=== PATIENT | male | born 1970 | race Caucasian/White ===

== ENCOUNTER → 2020-06-25 16:47 | Outpatient (CLI) | payer OTHER, SELFPAY ==
--- NOTE | ~2020-06-25 | MR_ITS ---
EXAMINATION: MR femur RT wo con DATE: 06/25/2020 18:24 INDICATION: Right upper leg pain. TECHNIQUE: Magnetic resonance imaging (MRI) of the right femur/thigh was performed without intravenou s contrast. A marker was placed over the region of concern. Sequences included axial T1-weighted FSE , axial T2-weighted FS FSE, coronal T1-weighted FSE, coronal fluid sensitive FSE STIR, sagittal T1-we ighted FSE and sagittal fluid sensitive FSE STIR. The contralateral left thigh is included on the cor onal images. COMPARISON: None. FINDINGS: Normal and symmetric muscle bulk and signal throughout both thighs. The marker is positioned posterio r to the mid thigh. No underlying masses or fluid collections identified. There is normal bone marrow signal throughout with no fracture, reactive edema or pathologic marrow replacing process. Femoral t unnel is seen in the location consistent with prior anterior cruciate ligament reconstruction. No hip or knee joint effusions. Neuromuscular structures are unremarkable. No pathologically enlarged lymph adenopathy at the right inguinal region. IMPRESSION: 1. Unremarkable MRI of the right thigh. No etiology identified for reported pain at the posterior thi gh. Reviewed, dictated and finalized at location B. IMPRESSION: 1. Unremarkable MRI of the right thigh. No etiology identified for reported mildred n at the posterior thigh.
== END ==
PROVIDERS: PCP Family Medicine; Visit Provider Family Medicine
DX: M79.604 Pain in right leg (principal)
CPT/HCPCS: 73718

== ENCOUNTER 2022-01-04 14:47 | Outpatient (CLI) | payer OTHER, SELFPAY ==
--- NOTE | ~2022-01-04 | MR_ITS ---
EXAMINATION: MR shoulder RT wo con DATE: 01/04/2022 15:56 INDICATION: Right shoulder pain. TECHNIQUE: Magnetic resonance imaging (MRI) of the right shoulder was performed without intravenous c ontrast. Sequences included axial PD-weighted FS FSE, coronal oblique PD-weighted FS FSE and T2-weigh robert FS FSE, and sagittal oblique T2-weighted FS FSE and T1-weighted FSE. COMPARISON: None. FINDINGS: Coracoacromial arch: The acromion undersurface is flat in morphology (type I). There is severe acromioclavicular joint ost eoarthritis including inferiorly directed osteophytes. There is moderate subacromial/subdeltoid bursi tis. Rotator cuff: There is severe supraspinatus tendinopathy. There is a bursal-sided, partial-thickness tear of anteri or supraspinatus tendon measuring 3 mm anterior to posterior by 6 mm anterior to posterior by 60% ten don thickness. There is moderate infraspinatus tendinopathy. Teres minor tendon is normal. There is m oderate subscapularis tendinopathy. There is no asymmetric fatty atrophy of the rotator cuff muscle massiel powers. Biceps tendon and glenoid labrum: Biceps tendon is in bicipital groove. There is mild intra-articular biceps tendinopathy. There is a t ear of posterior superior labrum from 10:00 to 12:00 (SLAP tear). Fluid: There is no glenohumeral joint effusion. Bones/cartilage: There is cartilage surface irregularity of glenoid and humeral head. IMPRESSION: 1. Bursal-sided, partial-thickness tear of supraspinatus tendon. 2. Mild glenohumeral joint chondrosis. SLAP tear. 3. Severe acromioclavicular joint osteoarthritis. 4. Moderate subacromial/subdeltoid bursitis. 5. Mild intra-articular biceps tendinopathy. Reviewed, dictated and finalized at location B.
== END 2022-01-04 14:48 ==
PROVIDERS: PCP Family Medicine; Visit Provider Nurse Practitioner Family
DX: M19.011 Primary osteoarthritis, right shoulder (principal); M75.51 Bursitis of right shoulder; S43.431A Superior glenoid labrum lesion of right shoulder, initial encounter; X58.XXXA Exposure to other specified factors, initial encounter
CPT/HCPCS: 73221

== ENCOUNTER → 2022-08-08 11:42 | Outpatient (CLI) | payer OTHER, SELFPAY ==
--- NOTE | ~2022-08-08 | CT_ITS ---
EXAMINATION: CT diagnostic chest wo con DATE: 08/08/2022 12:04 INDICATION: Upper lobe pulmonary nodule. TECHNIQUE: Computed tomography (CT) of the abdomen and pelvis was performed without intravenous contr ast. The dose-length product was 445.94 mGy-cm. Automated exposure control and iterative reconstructi on technique were employed. COMPARISON: None. FINDINGS: No thoracic lymphadenopathy. Heart size is normal. No significant pleural or pericardial ef fusion. The upper abdomen is unremarkable. There is a 1.5 x 1.3 cm nodule in the left upper lobe. The re is emphysema. No endobronchial lesions. There is a 6 mm nodule in the right lower lobe, superior s egment. There is a 2 mm left upper lobe nodule, image 51. IMPRESSION: 1. Bilateral pulmonary nodules, largest measuring 1.5 x 1.3 cm in the left upper lobe. Recommend foll ow-up PET/CT scan, low dose CT chest in 3 months or percutaneous biopsy. Reviewed, dictated and finalized at location A. CARE BILLER IMPRESSION: 1. Bilateral pulmonary nodules, largest measuring 1.5 x 1.3 cm in the left uppe r lobe. Recommend follow-up PET/CT scan, low dose CT chest in 3 months or percu taneous biopsy.
== END ==
PROVIDERS: PCP Nurse Practitioner Family; Visit Provider Nurse Practitioner Family
DX: R93.89 Abnormal findings on diagnostic imaging of other specified body structures (principal); R91.1 Solitary pulmonary nodule; M25.512 Pain in left shoulder
CPT/HCPCS: 71250

== ENCOUNTER → 2022-08-29 16:01 | Outpatient (CLI) | payer OTHER, SELFPAY ==
--- NOTE | ~2022-08-29 | MR_ITS ---
EXAMINATION: MR shoulder LT wo con DATE: 08/29/2022 16:55 INDICATION: Left shoulder pain TECHNIQUE: Magnetic resonance imaging (MRI) of the left shoulder was performed without intravenous co ntrast. Sequences included axial PD-weighted FS FSE, coronal oblique PD-weighted FS FSE, coronal obli que T2-weighted FS FSE, sagittal PD-weighted FS FSE, and sagittal T1-weighted SE. COMPARISON: None. FINDINGS: Coracoacromial arch: The acromion undersurface is minimally curved in morphology (type I-II). The coracoacromial ligament is normal. Moderate acromioclavicular osteoarthritis with mild cystic changes at the lateral head of the clavicle and small inferiorly directed osteophytes. Rotator cuff: Mild supraspinatus and infraspinatus tendinopathy without discrete tear. The teres minor tendon is no rmal. Tendinopathy cephalad aspect of the subscapularis tendon also without discrete tear. Normal rot ator cuff muscle bulk and signal. Biceps tendon, glenoid labrum and glenohumeral cartilage: Long head of the biceps tendon is normal. Of amorphous increased signal at the superior glenoid labru m consistent with labral degeneration without a discrete well-defined linear labral tear. Mild partia l-thickness cartilage loss with smooth chondral surface along the cephalad third of the glenoid as we ll as along the inferomedial aspect of the humeral head. Fluid: Small glenohumeral joint effusion with proportional small amount of fluid extending along the long he ad biceps tendon sheath. No loose osteochondral bodies. Moderate increased fluid signal in the subacr omial/subdeltoid bursa consistent with mild bursitis. Bones: Normal marrow signal with no edema, fracture or abnormal marrow replacing process. IMPRESSION: 1. Mild glenohumeral osteoarthritis with mild degeneration at the superior glenoid labrum and small g lenohumeral joint effusion. 2. Mild subscapularis, supraspinatus and infraspinatus tendinopathy without tear. 3. Moderate acromioclavicular osteoarthritis. 4. Mild subacromial/subdeltoid bursitis. Reviewed, dictated and finalized at location A. S [employer] IMPRESSION: 1. Mild glenohumeral osteoarthritis with mild degeneration at the superior marquita oid labrum and small glenohumeral joint effusion. 2. Mild subscapularis, supraspinatus and infraspinatus tendinopathy without tea r. 3. Moderate acromioclavicular osteoarthritis. 4. Mild subacromial/subdeltoid bursitis.
== END ==
PROVIDERS: PCP Nurse Practitioner Family; Visit Provider Nurse Practitioner Family
DX: R93.89 Abnormal findings on diagnostic imaging of other specified body structures (principal); R91.1 Solitary pulmonary nodule; M19.012 Primary osteoarthritis, left shoulder; M75.52 Bursitis of left shoulder
CPT/HCPCS: 73221

== ENCOUNTER 2022-09-05 13:17 | Outpatient (CLI) | payer OTHER, SELFPAY ==
--- NOTE | ~2022-09-05 | PE_ITS ---
EXAMINATION: PET skull to mid thigh DATE: 09/05/2022 15:18 INDICATION: Multiple pulmonary nodules TECHNIQUE: Blood glucose level was 114 mg/dL. 11.436 mCi of 18-fluorodeoxyglucose (18-FDG) was admini stered i.v. Low dose computed tomography (CT) images were acquired from the base of the brain to the proximal thighs for attenuation correction and anatomic localization. Positron emission tomography (P ET) images were acquired in the same distribution beginning 71 minutes after injection. Images includ ing fused PET/CT images were reconstructed in axial, coronal, and sagittal planes. Automated exposure control technique was employed. The dose-length product was 849.51mGy-cm. COMPARISON: Chest CT dated 08/08/2022 FINDINGS: Head/neck: There is symmetric increased activity in the oral cavity, palatine tonsils, parotid glands, submandi bular glands and ocular muscles without CT correlate, likely physiologic. No pathologically enlarged cervical lymphadenopathy or suspicious foci of increased FDG uptake in the visualized head or neck. Chest: 1.3 cm left apical nodule without evident FDG uptake. 6 mm nodules in the superior segment of the rig ht lower lobe and 2 mm nodule at the junction of the lingula and left upper lobe, both also without F DG uptake. No pneumonia, pulmonary edema or pleural effusion. Heart size is normal. No pericardial ef fusion. Thoracic aorta is normal in caliber. No pathologically enlarged or FDG avid thoracic lymphade nopathy. Abdomen/pelvis/proximal thighs: Physiologic renal accumulation and excretion of FDG activity in the kidneys, bladder and along portio ns of ureters. Normal degree and heterogenous pattern of increased uptake throughout the liver withou t radiologic correlate or dominant FDG avid lesion. The gallbladder, pancreas, spleen and bilateral a drenal glands are normal. Normal appendix. Mild to moderate uptake scattered throughout the bowels wi thout radiologic correlate, also likely physiologic. No other abnormal foci of increased FDG uptake o r pathologically enlarged lymphadenopathy in the abdomen, pelvis or proximal thighs. Musculoskeletal: Mild synovial uptake about the bilateral glenohumeral joints. Mild uptake at the bilateral ischial tu berosities and left greater trochanter likely related to mild ischial and trochanteric bursitis respe ctively. No suspicious lytic, blastic or FDG avid bone lesions. IMPRESSION: 1. No FDG uptake is fissure with a few pulmonary nodules, the largest a 1.3 cm left upper lobe nodule . While reassuring and favoring old granulomatous disease at this does not absolutely exclude maligna ncy. Recommend 6 month follow-up low-dose noncontrast chest CT. 2. No FDG avid lesions suspicious for malignancy Reviewed, dictated and finalized at location L. ER JOINER IMPRESSION: 1. No FDG uptake is fissure with a few pulmonary nodules, the largest a 1.3 cm left upper lobe nodule. While reassuring and favoring old granulomatous disease at this does not absolutely exclude malignancy. Recommend 6 month follow-up lo w-dose noncontrast chest CT. 2. No FDG avid lesions suspicious for malignancy
[2022-09-05 13:44] LABS: Glucose Point of Care 114 mg/dl (65-105)
== END 2022-09-05 13:18 | disposition home or self-care (01) ==
PROVIDERS: PCP Nurse Practitioner Family; Visit Provider Nurse Practitioner Family
DX: R93.89 Abnormal findings on diagnostic imaging of other specified body structures (principal); R91.8 Other nonspecific abnormal finding of lung field; R91.1 Solitary pulmonary nodule
CPT/HCPCS: 78815; A9552

== ENCOUNTER 2023-02-26 15:06 | Outpatient (CLI) | payer OTHER, SELFPAY ==
--- NOTE | ~2023-02-26 | CT_ITS ---
EXAMINATION:CT diagnostic chest wo con DATE: 02/26/2023 15:21 INDICATION: Left upper lobe pulmonary nodule. Abnormal findings on imaging. TECHNIQUE: Computed tomography (CT) of the chest was performed without intravenous contrast. Automate d exposure control and iterative reconstruction technique were employed. The dose-length product (DLP ) was 158.25 mGy-cm. COMPARISON: Chest CT 08/08/2022, PET/CT 09/05/22 FINDINGS: There is a stable 6 mm nodule in right lower lobe. There is a stable calcified 14 mm nodule in left upper lobe. There are two 3 mm nodules in left upper lobe that are stable. No pleural effusi on. The heart size is normal. No pericardial effusion. There is mild thoracic spondylosis. IMPRESSION: 1. Stable pulmonary nodules, likely benign. Reviewed, dictated and finalized at location A.
== END 2023-02-26 15:07 ==
PROVIDERS: PCP Nurse Practitioner Family; Visit Provider Nurse Practitioner Family
DX: R93.89 Abnormal findings on diagnostic imaging of other specified body structures (principal); J84.10 Pulmonary fibrosis, unspecified; R91.1 Solitary pulmonary nodule; M19.019 Primary osteoarthritis, unspecified shoulder; M24.012 Loose body in left shoulder; F43.21 Adjustment disorder with depressed mood; R91.8 Other nonspecific abnormal finding of lung field
CPT/HCPCS: 71250

== ENCOUNTER 2023-10-04 10:07 | Outpatient (CLI) | payer OTHER, SELFPAY ==
--- NOTE | ~2023-10-04 | CT_ITS ---
EXAMINATION:CT diagnostic chest wo con DATE: 10/04/2023 10:18 INDICATION: Granulomatous lung disease. Pulmonary nodule. TECHNIQUE: Computed tomography (CT) of the chest was performed without intravenous contrast. Automate d exposure control and iterative reconstruction technique were employed. The dose-length product (DLP ) was 265.58 mGy-cm. COMPARISON: Chest CT 02/26/2023, 08/08/2022 FINDINGS: A calcified left upper lobe nodule is consistent with old granulomatous disease. There are a few scattered nodules in the lungs measuring up to 5 mm in right lower lobe. No pleural effusion. T he heart size is normal. There are coronary artery calcifications. No pericardial effusion. There is mild thoracic spondylosis. IMPRESSION: 1. Pulmonary nodules, stable from 08/08/2022, likely benign. Reviewed, dictated and finalized at location E. A PROMOTER
== END 2023-10-04 10:08 ==
PROVIDERS: PCP Nurse Practitioner Family; Visit Provider Nurse Practitioner Family
DX: R91.8 Other nonspecific abnormal finding of lung field (principal); J84.10 Pulmonary fibrosis, unspecified; R91.1 Solitary pulmonary nodule
CPT/HCPCS: 71250

== ENCOUNTER 2024-10-27 09:36 | Outpatient (CLI) | payer OTHER, SELFPAY ==
--- NOTE | ~2024-10-27 | CT_ITS ---
EXAMINATION:CT diagnostic chest wo con DATE: 10/27/2024 09:54 INDICATION: Solitary pulmonary nodule. TECHNIQUE: Computed tomography (CT) of the chest was performed without intravenous contrast. Automate d exposure control and iterative reconstruction technique were employed. The dose-length product (DLP ) was 179.08 mGy-cm. COMPARISON: Chest CT 10/04/2023, 08/08/2022 FINDINGS: A calcified left upper lobe nodule is consistent with old granulomatous disease. There are a few noncalcified nodules in the lungs measuring up to 6 mm in right lower lobe, stable from 2. No pleural effusion. The heart size is normal. No pericardial effusion. There is mild thoracic spo ndylosis. IMPRESSION: 1. Chronic pulmonary nodules, likely benign. Reviewed, dictated and finalized at location A. MER ENGINEER
== END 2024-10-27 09:37 | disposition home or self-care (01) ==
LOC: MICIMG 09:37
PROVIDERS: PCP Student in an Organized Health Care Education/Training Program; Visit Provider Student in an Organized Health Care Education/Training Program
DX: R91.1 Solitary pulmonary nodule (principal); R91.8 Other nonspecific abnormal finding of lung field
CPT/HCPCS: 71250

== ENCOUNTER 2025-03-28 07:29 | Outpatient (CLI) | payer OTHER, SELFPAY ==
--- NOTE | ~2025-03-28 | MR_ITS ---
MRI of the right shoulder Technique: Axial proton-density fat-sat images, coronal proton density fat-sat and T2 fat-sat images, and sagittal T1-weighted and T2 fat-sat images were acquired. Clinical History: Pain Findings: There is advanced AC joint degenerative change or possibly productive change about the join t. There is fluid in the joint space with probable tear of the inferior acromioclavicular ligament. C oracoclavicular, coracoacromial, and coracohumeral ligaments appear intact. There is a 1.1 x 1.0 cm full-thickness tear at the anterior, distal supraspinatus tendon insertion. I nfraspinatus tendon is intact. Subscapularis tendon is intact with advanced tendinosis. Tendon of jauquin g head of the biceps is intact, with intra-articular tendinosis. No definite labral tear seen. Inferior glenohumeral ligament is intact. There is moderate chondromalacia the medial humeral head. N o significant joint effusion. There is minimal fluid in the subacromial/subdeltoid bursa. No muscle a trophy or edema. Impression: 1.1 x 1.0 cm full-thickness tear at the anterior, distal supraspinatus tendon insertion. Background r otator cuff tendinosis, as above. Advanced AC joint degenerative change. Probable tear of the inferior acromioclavicular ligament. Reviewed, dictated and finalized at [facility]. Impression: 1.1 x 1.0 cm full-thickness tear at the anterior, distal supraspinatus tendon i nsertion. Background rotator cuff tendinosis, as above. Advanced AC joint degenerative change. Probable tear of the inferior acromiocla vicular ligament.
== END 2025-03-28 07:30 | disposition home or self-care (01) ==
DX: M19.011 Primary osteoarthritis, right shoulder (principal)
CPT/HCPCS: 73221